=== PATIENT | male | born 2000 | race Two or more races ===

== ENCOUNTER 2022-01-26 22:44 | Emergency (ER) | payer SELFPAY ==
[~2022-01-26] VITALS: Ht 170.2 cm; Wt 68.0 kg
[2022-01-26 22:53] VITALS: BP 128/67
[2022-01-26] MEDS ORDERED: diphenhdrAMINE HCL 12.5 MG/5 ML UD PO ONE (23:15)
[2022-01-26] MEDS ORDERED: methylPREDNISolone SOD SUCC 125 MG/2 ML VL IM ONE (23:15)
[2022-01-27] MEDS ORDERED: diphenhdrAMINE HCL 25 MG CAP PO ONE
== END 2022-01-27 00:15 | disposition left against medical advice (07) ==
LOC: ER 22:46
DX: T78.40XA Allergy, unspecified, initial encounter (principal); Z53.21 Procedure and treatment not carried out due to patient leaving prior to being seen by health care provider; X58.XXXA Exposure to other specified factors, initial encounter